=== PATIENT | male | born 1990 | race Caucasian/White ===

== ENCOUNTER 2024-02-05 14:45 | Outpatient (CLI) | payer OTHER | END 2024-02-05 14:46 | disposition home or self-care (01) | LOC: CSHULT 14:45 | PROVIDERS: ATTEND Family Medicine | DX: N45.1 Epididymitis (principal); Z98.52 Vasectomy status; N44.2 Benign cyst of testis | CPT/HCPCS: 76870; 93976 ==

== ENCOUNTER 2025-01-20 17:57 | Emergency (ER) | payer OTHER ==
[~2025-01-20 17:57] MED LIST: Iopamidol 300 61% 100 ML VIAL FS ONE
[2025-01-20 18:35] LABS: #Basophils Less than 0.03 10x3/uL (0.0-0.2); #Eosinophils 0.11 10x3/uL (0.0-0.5); #Monocytes 0.47 10x3/uL (0.0-1.1); #Neutrophils 4.59 10x3/uL (1.5-8.4); %Basophils 0.3 % (0.0-2.0); %Eosinophils 1.7 % (0.0-6.0); %Lymphocytes 20.1 % (18.0-47.0); %Monocytes 7.2 % (0.0-10.0); %Neutrophils 70.5 % (40.0-75.0); Hematocrit 45.3 % (38.8-50.0); Hemoglobin 16.2 g/dL (13.5-17.5); Mean Corpuscular Hemoglobin 30.5 pg (27.0-33.0); Mean Corpuscular Volume 85.2 fL (81.2-95.1); Platelet Count 246 10x3/uL (150-450); Red Blood Cell (RBC) Count 5.32 10x6/uL (4.32-5.72); White Blood Cell (WBC) Count 6.51 10x3/uL (3.5-10.5)
[2025-01-20 18:50] LABS: ALT (SGPT) 65 U/L (Less than 45); AST (SGOT) 30 U/L (11-34); Albumin 4.7 g/dL (3.1-4.5); Alkaline Phosphatase 50 U/L (40-110); Anion Gap 13 mmol/L (10-20); BUN (Urea Nitrogen) 17 mg/dL (8.9-20.6); Bilirubin, Total 1.5 mg/dL (0.3-1.2); Calc. Creatinine Clearance 0 mL/min (70-130); Calcium 8.9 mg/dL (7.8-10.44); Carbon Dioxide 24 mmol/L (22-29); Chloride 106 mmol/L (98-107); Globulin 2.5 g/dL (2.4-3.5); Glucose 91 mg/dL (70-105); Lipase 35 U/L (8-78); Potassium 4.3 mmol/L (3.5-5.1); Sodium 139 mmol/L (136-145)
[2025-01-20 18:54] LABS: Troponin I Less than 0.010 ng/mL (< 0.028)
[2025-01-20] MEDS ORDERED: Ketorolac Tromethamine 30 MG (1 mL) VIAL ONE (19:00)
[2025-01-20] MEDS ORDERED: Pantoprazole 40 MG VIAL ONE (19:00)
[2025-01-20 20:35] LABS: Glucose, Urine (Dipstick) Normal (Negative); Leukocyte Negative (Negative); Protein, Urine (Dipstick) 15 mg/dl (Neg-Trace); Specific Gravity, Urine 1.020 (1.005-1.030)
[2025-01-20 20:48] LABS: Bacteria/HPF Rare-Few HPF (None Seen); CAUTI Indications for Culture Pelvic or flank pain; RBC/HPF None Seen HPF (0-3); Urine Culture Reflex No No; WBC/HPF 0-3 HPF (0-3)
== END 2025-01-20 21:43 | disposition home or self-care (01) ==
LOC: CSHERS 17:57
DX: R07.2 Precordial pain (principal)
CPT/HCPCS: 71045; 74177; 76705; 80053; 81001; 83690; 84484; 85025; 93005; 96374; 96375; J1885; J2272; J2470